=== PATIENT | male | born 1940 | race American Indian/Alaskan Native ===

== ENCOUNTER 2017-01-08 11:58 | Inpatient (IN) | payer MEDICARE ==
[2017-01-07 16:11] LABS: Basophils % (Auto) 1.1 % (0.0-1.8); Eosinophils % (Auto) 4.1 % (0.0-4.3); Hematocrit 40.9 % (35.5-45.6); Hemoglobin 13.4 gm/dl (11.8-15.2); Mean Corpuscular HGB Conc 33 % (32-34); Mean Corpuscular Hemoglobin 27 pg (28-32); Mean Corpuscular Volume 82 fl (84-94); Platelet Count 271 K/mm3 (140-440); Red Blood Count 4.98 M/mm3 (3.65-5.03); Red Cell Distribution Width 14.4 % (13.2-15.2); White Blood Count 7.6 K/mm3 (4.5-11.0)
--- NOTE | 2017-01-07 16:18 | Anesthesia Consultation ---
Anesthesia Consult and Med Hx Date of service: 01/08/17 - Airway Anesthetic Teeth Evaluation: Edentulous ROM Head & Neck: Adequate Mental/Hyoid Distance: Adequate Mallampati Class: Class II Intubation Access Assessment: Probably Good - Pre-Operative Health Status ASA Pre-Surgery Classification: ASA3 Proposed Anesthetic Plan: General, MAC - Pulmonary Hx Smoking: Yes (STOPPED X 1 YR-1 PACK PER WEEK) COPD: Yes (NO MEDS) Hx Sleep Apnea: No (LARISA PRE SCREEN HIGH RISK) - Cardiovascular System Hx Hypertension: Yes (X 1 YR) - Central Nervous System Hx Back Pain: Yes - Other Systems Hx Cancer: No
[2017-01-07 16:23] LABS: INR 1.04 (0.87-1.13)
[2017-01-07 16:24] LABS: Alanine Aminotransferase 33 units/L (7-56); Albumin 3.9 g/dL (3.9-5); Albumin/Globulin Ratio 1.1 %; Alkaline Phosphatase 97 units/L (35-129); Anion Gap 17 mmol/L; BUN/Creatinine Ratio 16.66; Blood Urea Nitrogen 15 mg/dL (9-20); Carbon Dioxide 25 mmol/L (22-30); Chloride 99.6 mmol/L (98-107); Glucose 103 mg/dL (75-100); Partial Thromboplastin Time 35.4 Sec. (24.2-36.6); Potassium 4.3 mmol/L (3.6-5.0); Sodium 137 mmol/L (137-145); Total Protein 7.4 g/dL (6.3-8.2)
[~2017-01-08 11:58] MED LIST: ANCEF/STERILE WATER 2 GM/20 ML IV NR; GARAMYCIN/NS 80 MG/100 ML 100 ML IV SCH; PEPCID PO NR; VERSED IV NR
[2017-01-08] MEDS: LACTATED RINGERS 1,000 ML IV SCH ×2 (12:45→17:45)
[2017-01-08] MEDS ORDERED: XYLOCAINE MPF 2% ONE (13:10)
[2017-01-08] MEDS ORDERED: DIPRIVAN 10 MG/ML IV ONE (13:10)
[2017-01-08] MEDS ORDERED: VERSED ONE (13:16)
[2017-01-08] MEDS ORDERED: PEPCID PO NR (13:30)
[2017-01-08] MEDS ORDERED: VERSED IV NR (13:30)
[2017-01-08] MEDS ORDERED: SUBLIMAZE ONE (13:41)
[2017-01-08] MEDS ORDERED: DECADRON ONE (13:44)
[2017-01-08] MEDS ORDERED: SORBITOL-MANNITOL IRRIG IR ONE (14:00)
[2017-01-08] MEDS ORDERED: NEO SYNEPHRINE/NS Syringe(OR USE) IV ONE (14:00)
[2017-01-08] MEDS ORDERED: WATER FOR IRRIG STERILE IR ONE (14:00)
[2017-01-08] MEDS ORDERED: ZOFRAN ONE (14:29)
[2017-01-08] MEDS ORDERED: LACTATED RINGERS 1,000 ML ONE (14:38)
[2017-01-08] MEDS ORDERED: MORPHINE IV PRN (14:45)
[2017-01-08] MEDS ORDERED: AMBIEN PO PRN (14:45)
[2017-01-08] MEDS ORDERED: ZOFRAN IV PRN (14:45)
[2017-01-08] MEDS ORDERED: NARCAN 0.4 MG/1 ML IV PRN (14:45)
[2017-01-08] MEDS ORDERED: NORCO 5/325 PO PRN (14:45)
[2017-01-08] MEDS ORDERED: LACTATED RINGERS 1,000 ML IV SCH (15:00)
--- NOTE | 2017-01-08 15:20 | Post Operative Note ---
Pre-op diagnosis: BPH and elevated PSA Post-op diagnosis: same Procedure: Cystoscopy and cystogram Transrectal ultrasound 110 mL Prostate biopsy Transurethral resection of the prostate Indications This patient is a 76-year-old gentleman seen in the office for elevated PSA of 9.8 also developed urinary retention requiring cystoscopy and Ortega catheter placement He presents now for surgical intervention risks benefits complications were explained Procedure Patient was taken to the operative suite placed in a supine position after adequate general anesthesia. Patient was prepped and draped in a sterile fashion placement dorsolithotomy position. Hoang cystourethroscopy was performed with a 22 [place] Storz cystoscope. Urethra was normal prostate revealed significant trilobar prostatic obstruction. Bladder no tumors or stones were noted ureteral orifices could not be appreciated due to significant trabeculation. Cystogram was performed no extravasation. Using a 27 [place] resectoscope and loop with the clinic cutting and coag on 160 and 60, transurethral resection of the prostate was performed in a systematic fashion. The median lobe of the prostate and lateral lobes were resected systematically. Each chips were evacuated out with the clickTRUE evacuator. Adequate hemostasis was achieved Prior to the TURP, transrectal ultrasound and biopsy was performed. The real time measurements of the prostate revealed 110 mL. No prosthetic lesions could be appreciated. Using the transrectal biopsy gun, 12 core biopsy was performed , 4 cores at the apex mid and base of the prostate. Patient tolerated the procedure well. 22 [place] 3-way catheter to Matthews drip was connected rectal exam was benign. Patient was taken to the recovery room in stable condition Anesthesia: AKANKSHAA Surgeon: YOSELYN EARLY Estimated blood loss: 50-100ml Pathology: list (prostate chips, prostate cores) Condition: stable Disposition: PACU
--- NOTE | 2017-01-08 15:22 | Short Stay Summary ---
Short Stay Documentation Date of service: 01/08/17 - History H&P: obtained from office - Allergies and Medications Current Medications: Allergies No Known Allergies Allergy (Verified 01/06/17 15:37) Home Medications Medication Instructions Recorded Confirmed Last Taken Type Cyanocobalamin (Vitamin B-12) 2,500 mcg PO DAILY 01/06/17 01/06/17 01/07/17 History [Vitamin B12] Multivits,Ca,Min/Iron/FA/Lycop 1 each PO DAILY 01/06/17 01/06/17 01/07/17 History [Centrum Men's Tablet] Tamsulosin [Flomax] 0.4 mg PO QDAY 01/06/17 01/06/17 01/07/17 History amLODIPine [Norvasc] 5 mg PO DAILY 01/06/17 01/08/17 01/08/17 07:30 History Active Medications Acetaminophen/Hydrocodone Bitart ([place] 5/325) 2 each PO Q4H PRN PRN Reason: Pain, Moderate (4-6) Amlodipine Besylate (Norvasc) 5 mg PO DAILY SHERI Cefazolin Sodium (Ancef/Sterile Water 2 Gm/20 Ml) 2 gm IV PREOP NR Stop: 01/08/17 23:59 Cyanocobalamin (Vitamin B-12) 2,500 mcg PO DAILY SHERI Famotidine (Pepcid) 20 mg PO PREOP NR Stop: 01/08/17 19:00 Last Admin: 01/08/17 13:13 Dose: 20 mg Gentamicin Sulfate/Sodium Chloride (Garamycin/Ns 80 Mg/100 Ml) 100 mls @ 200 mls/hr IV PREOP SHERI Lactated Ringer's (Lactated Ringers) 1,000 mls @ 100 mls/hr IV DIRECT SHERI Last Admin: 01/08/17 12:45 Dose: 100 mls/hr Cefazolin Sodium (Ancef/Ns 1 Gm/50 Ml) 1 gm in 50 mls @ 100 mls/hr IV Q8H SHERI PRN Reason: Protocol Stop: 01/09/17 05:59 Lactated Ringer's (Lactated Ringers) 1,000 mls @ 100 mls/hr IV DIRECT SHERI Midazolam HCl (Versed) 2 mg IV PREOP NR Stop: 01/08/17 18:00 Last Admin: 01/08/17 13:13 Dose: 2 mg Morphine Sulfate (Morphine) 4 mg IV Q4H PRN PRN Reason: Pain , Severe (7-10) Multivitamins (Theragran Tab) 1 each PO DAILY SHREI Naloxone HCl (Narcan 0.4 Mg/1 Ml) 0.1 mg IV Q2MIN PRN PRN Reason: Res Rate </= 8 or 02 SAT < 92% Ondansetron HCl (Zofran) 4 mg IV Q8H PRN PRN Reason: Nausea And Vomiting Sodium Chloride (Nacl 0.9%) 2,000 ml IR DIRECT SHERI Zolpidem Tartrate (Ambien) 5 mg PO QHS PRN PRN Reason: Sleep - Brief post op/procedure progress note Date of procedure: 01/08/17 Pre-op diagnosis: bph, elevated psa Post-op diagnosis: same Procedure: cysto, cystogram, turp, pus bx Surgeon: YOSELYN EARLY Estimated blood loss: 50-100ml Pathology: list (prostate chips & cores) Condition: stable - Hospital course Hospital course: bianka & trang on chart k+ 5.1 this am home with [facility] - Disposition Condition at discharge: Stable Short Stay Discharge Plan Follow up with: CARLY TORRES MD [Primary Care Provider] - 7 Days
[2017-01-08] MEDS: DILAUDID IV PRN ×2 (15:30→15:44)
--- NOTE | 2017-01-08 15:39 | Fluoroscopy Report ---
Static cystogram. History: Elevated PSA. Findings: The billet shearer film is unremarkable. A single image of the contrast-filled urinary bladder demonstrates normal size and contour with no evidence of vesicoureteral reflux. Impression: Negative study.
[2017-01-08] MEDS ORDERED: NORMODYNE IV PRN (15:53)
[2017-01-08 17:37] LABS: Basophils % (Auto) 0.4 % (0.0-1.8); Eosinophils % (Auto) 0.3 % (0.0-4.3); Hematocrit 38.3 % (35.5-45.6); Hemoglobin 12.4 gm/dl (11.8-15.2); Mean Corpuscular HGB Conc 32 % (32-34); Mean Corpuscular Hemoglobin 27 pg (28-32); Mean Corpuscular Volume 83 fl (84-94); Platelet Count 266 K/mm3 (140-440); Red Blood Count 4.61 M/mm3 (3.65-5.03); Red Cell Distribution Width 14.1 % (13.2-15.2); White Blood Count 8.9 K/mm3 (4.5-11.0)
[2017-01-08 17:54] LABS: Anion Gap 18 mmol/L; Blood Urea Nitrogen 12 mg/dL (9-20); Calcium 8.9 mg/dL (8.4-10.2); Carbon Dioxide 27 mmol/L (22-30); Chloride 102.8 mmol/L (98-107); Glucose 133 mg/dL (75-100); Potassium 5.5 mmol/L (3.6-5.0); Sodium 142 mmol/L (137-145)
--- NOTE | 2017-01-08 17:58 | Post Anesthesia Evaluation ---
- Post Anesthesia Evaluation Patient Participated: Yes Airway Patent: Yes Stable Respiratory Function: Yes Nausea/Vomiting: No Temp > 96.8F: Yes Pain Manageable: Yes Adequeate Hydration: Yes Anesthesia Complications: No
[2017-01-08] MEDS ORDERED: NACL 0.9% 1,000 ML IR ONE (18:04)
[2017-01-08] MEDS: ANCEF/NS 1 GM/50 ML 1 GM/50 ML BAG IV SCH (22:01)
[2017-01-08] MEDS: NACL 0.9% IR SCH ×2 (22:06→22:07)
[2017-01-08] MEDS ORDERED: KIONEX PO ONE (22:24)
[2017-01-08] MEDS ORDERED: KIONEX PR ONE (22:30)
--- NOTE | 2017-01-08 23:50 | Consultation ---
History of Present Illness - Reason for Consult Consult date: 01/08/17 Medical management Requesting physician: YOSELYN EARLY - History of Present Illness S/p Turp --Post op doing well.On Matthews drip. Past History Past Medical History: hypertension, other Past Surgical History: TURP Social history: no significant social history Family history: hypertension Medications and Allergies Allergies Allergy/AdvReac Type Severity Reaction Status Date / Time No Known Allergies Allergy Verified 01/06/17 15:37 Home Medications Medication Instructions Recorded Confirmed Last Taken Type Cyanocobalamin (Vitamin B-12) 2,500 mcg PO DAILY 01/06/17 01/06/17 01/07/17 History [Vitamin B12] Multivits,Ca,Min/Iron/FA/Lycop 1 each PO DAILY 01/06/17 01/06/17 01/07/17 History [Centrum Men's Tablet] Tamsulosin [Flomax] 0.4 mg PO QDAY 01/06/17 01/06/17 01/07/17 History amLODIPine [Norvasc] 5 mg PO DAILY 01/06/17 01/08/17 01/08/17 07:30 History Active Meds: Active Medications Acetaminophen/Hydrocodone Bitart ([place] 5/325) 2 each PO Q4H PRN PRN Reason: Pain, Moderate (4-6) Amlodipine Besylate (Norvasc) 5 mg PO DAILY SHERI Cefazolin Sodium (Ancef/Sterile Water 2 Gm/20 Ml) 2 gm IV PREOP NR Stop: 01/08/17 23:59 Cyanocobalamin (Vitamin B-12) 2,500 mcg PO DAILY SHERI Hydromorphone HCl (Dilaudid) 0.5 mg IV Q10MIN PRN PRN Reason: Pain , Severe (7-10) Stop: 01/08/17 23:59 Last Admin: 01/08/17 15:44 Dose: 0.5 mg Gentamicin Sulfate/Sodium Chloride (Garamycin/Ns 80 Mg/100 Ml) 100 mls @ 200 mls/hr IV PREOP SHERI Lactated Ringer's (Lactated Ringers) 1,000 mls @ 100 mls/hr IV DIRECT SHERI Last Admin: 01/08/17 17:45 Dose: 100 mls/hr Cefazolin Sodium (Ancef/Ns 1 Gm/50 Ml) 1 gm in 50 mls @ 100 mls/hr IV Q8H SHERI PRN Reason: Protocol Stop: 01/09/17 05:59 Last Admin: 01/08/17 22:01 Dose: 100 mls/hr Lactated Ringer's (Lactated Ringers) 1,000 mls @ 100 mls/hr IV DIRECT SHERI Labetalol HCl (Normodyne) 10 mg IV ONCE PRN PRN Reason: Hypertension SYS>160 Stop: 01/10/17 15:54 Last Admin: 01/08/17 16:05 Dose: 10 mg Morphine Sulfate (Morphine) 4 mg IV Q4H PRN PRN Reason: Pain , Severe (7-10) Multivitamins (Theragran Tab) 1 each PO DAILY SHERI Naloxone HCl (Narcan 0.4 Mg/1 Ml) 0.1 mg IV Q2MIN PRN PRN Reason: Res Rate </= 8 or 02 SAT < 92% Ondansetron HCl (Zofran) 4 mg IV Q8H PRN PRN Reason: Nausea And Vomiting Sodium Chloride (Nacl 0.9%) 2,000 ml IR DIRECT SHERI Last Admin: 01/08/17 22:07 Dose: 2,000 ml Zolpidem Tartrate (Ambien) 5 mg PO QHS PRN PRN Reason: Sleep Review of Systems All systems: negative Exam - Constitutional Vitals: Temp Pulse Resp BP Pulse Ox 97.4 F L 80 17 137/77 100 01/08/17 22:02 01/08/17 22:02 01/08/17 22:02 01/08/17 22:02 01/08/17 22:02 General appearance: Present: no acute distress, well-nourished - EENT Eyes: Present: PERRL ENT: hearing intact, clear oral mucosa - Neck Neck: Present: supple, normal ROM - Respiratory Respiratory effort: normal Respiratory: bilateral: CTA - Cardiovascular Heart Sounds: Present: S1 & S2. Absent: rub, click - Extremities Extremities: pulses symmetrical, No edema Peripheral Pulses: within normal limits - Abdominal General gastrointestinal: Present: soft, non-tender, non-distended, normal bowel sounds Male genitourinary: Present: normal - Integumentary Integumentary: Present: clear, warm, dry - Musculoskeletal Musculoskeletal: gait normal, strength equal bilaterally - Psychiatric Psychiatric: appropriate mood/affect, intact judgment & insight - Neurologic Neurologic: CNII-XII intact, moves all extremities Results - Labs CBC & Chem 7: 01/09/17 05:19 01/09/17 05:19 Labs: Abnormal lab results 01/08/17 01/08/17 Range/Units 16:56 16:56 MCV 83 L (84-94) fl MCH 27 L (28-32) pg Lymph % (Auto) 8.7 L (13.4-35.0) % Lymph # 0.8 L (1.2-5.4) K/mm3 Seg Neutrophils % 88.6 H (40.0-70.0) % Seg Neutrophils # 7.9 H (1.8-7.7) K/mm3 Potassium 5.5 H D (3.6-5.0) mmol/L Glucose 133 H (75-100) mg/dL Assessment and Plan - Patient Problems (1) HTN (hypertension) Current Visit: Yes Status: Acute Qualifiers: Hypertension type: essential hypertension Qualified Code(s): I10 - Essential (primary) hypertension Plan to address problem: On Amlodipine 5mg po qd (2) BPH (benign prostatic hyperplasia) Current Visit: Yes Status: Chronic Qualifiers: Lower urinary tract symptom presence: L Lower urinary tract symptom detail : unspecified Qualified Code(s): N40.1 - Benign prostatic hyperplasia with lower urinary tract symptoms Plan to address problem: Had TURP.May not need
[2017-01-09] MEDS: LACTATED RINGERS 1,000 ML IV SCH (03:32)
[2017-01-09] MEDS: NACL 0.9% IR SCH ×4 (04:00→06:34)
[2017-01-09 06:27] LABS: Basophils % (Auto) 0.4 % (0.0-1.8); Eosinophils % (Auto) 0.1 % (0.0-4.3); Hemoglobin 10.8 gm/dl (11.8-15.2); Mean Corpuscular HGB Conc 33 % (32-34); Mean Corpuscular Hemoglobin 27 pg (28-32); Mean Corpuscular Volume 82 fl (84-94); Platelet Count 268 K/mm3 (140-440); Red Cell Distribution Width 13.9 % (13.2-15.2); White Blood Count 9.4 K/mm3 (4.5-11.0)
[2017-01-09] MEDS: ANCEF/NS 1 GM/50 ML 1 GM/50 ML BAG IV SCH (06:35)
[2017-01-09 06:42] LABS: Anion Gap 18 mmol/L; BUN/Creatinine Ratio 13.75; Blood Urea Nitrogen 11 mg/dL (9-20); Calcium 8.4 mg/dL (8.4-10.2); Carbon Dioxide 25 mmol/L (22-30); Chloride 101.3 mmol/L (98-107); Glucose 107 mg/dL (75-100); Potassium 5.1 mmol/L (3.6-5.0); Sodium 139 mmol/L (137-145)
--- NOTE | 2017-01-09 07:58 | Admit Criteria Form ---
Admission Criteria Documentation: AMBULATORY SURGERY EXCEPTION CRITERIA Ambulatory Surgery Exception Criteria ( Place 'X' for any and all applicable criteria): Surgery or procedure performed on ambulatory basis may require inpatient stay for[A] ANY ONE of the following(1)(2)(3)(4)(5)(6)(7)(8)(9): [] I. A preoperative situation, condition, or finding that warrants inpatient stay as indicated by ANY ONE of the following: [] a) Inpatient care needed because of severity of a disease or condition rather than the surgery (eg, severe cardiac or respiratory disease, severe infection) (15) (16 ) (17) (18) [] b) Emergent procedure (eg, angioplasty for acute ischemia)(19) [] c) Complex surgical approach or situation as indicated by ANY ONE of the following(3): [] i) Open approach needed instead of usual endoscopic, transcatheter, or other less invasive procedure [] ii) Difficult approach because of previous operation [] iii) Airway monitoring required after open neck procedures(20)(21) [] iv) Large mass requiring unusually extensive dissection [] v) Additional complicating feature requiring inpatient care (eg, drain management)(22(23): [] d) Major surgery in a pt with high anesthetic risk as indicated by ANY ONE of the following (2)(3)(5)(7)(8): [] i) ASA risk class III or higher (severe systemic disease impairing function) [D] [] ii) Advanced age (eg, older than 85 years)(14)(24) [] iii) Symptomatic heart failure(25) [] iv) Symptomatic asthma or COPD(8)(21) [] v) Morbid obesity with hemodynamic or respiratory problems(20)( 21)(26)(27) [] vi) Obstructive sleep apnea(20)(21) [] vii) Former premature infants who are younger than 60 weeks [] viii) High risk for severe postoperative abnormalities (eg, severe postoperative hypocalcemia after parathyroidectomy for severe hyperparathyroidism)(27)( 28) [] ix) Unstable angina(25) [] e) Drug-related risk requiring inpatient stay as indicated by ANY ONE of the following(5)(10)(14)(32)(33) [] i) Procedure requires discontinuing drugs or other therapy (eg , antiarrhythmic medication, antiseizure medication), which necessitates inpatient observation or treatment.(18)(31) [] ii) Major surgery and high risk drug use as indicated by ANY ONE of the following: [] 1) Active abuse of cocaine or similar drug [] 2) Monoamine oxidase inhibitor use [] 3) Other drug identified as posing risk [] f) Inadequate outpatient care situation as indicated by ANY ONE of the following(5)(10)(14)(32)(33) [] i) Patient lives remote from medical facility and procedure has urgent complication potential, and temporary nearby residence cannot be arranged [] ii) Patient will have postprocedure incapacitation and inadequate assistance at home, or alternative level of care cannot be arranged. [] iii) Patient will have long general anesthesia or procedure side effect resolution time, and competent person to stay with patient on first postoperative night at home or alternative level of care cannot be arranged. []iv) Other inadequate outpatient situation that cannot be handled by other means [X] II. A perioperative event, condition, or finding that warrants inpatient stay as indicated by ANY ONE of the following (1)(2)(3): [X] a) Inadequate physiologic recovery: cardiovascular, respiratory, or hemodynamic status not normal or near preoperative baseline(18) [] b) Hemodynamic instability [] c) Patient not alert with near normal or baseline mental status [] d) Temperature not normal or as expected and not appropriate for outpatient treatment of condition [] e) Ambulatory or appropriate activity level status not yet achieved post procedure [E](34)(35)(36) [] f) Operative site not appropriate (eg, unexpected or excessive drainage or bleeding) [] g) Postoperative effects not resolved or adequately managed (eg, significant pain or vomiting not appropriate for outpatient or next level of care)(10)(12) [] h) Complicating features requiring inpatient care as indicated by ANY ONE of the following(37): [] i) Severe complications of procedure (eg, bowel injury, airway compromise, vascular injury,severe hemorrhage) [] ii) Extensive (eg, dissection far beyond usual scope of procedure ) or prolonged (eg, 120 minutes beyond usual) surgery needed requiring inpatient postoperative care [] iii) Conversion to an open or complex procedure that requires inpatient care (eg, open vs laparoscopic cholecystectomy, abdominal vs vaginal hysterectomy)(38) [] iv) Comorbid condition or test result identified during or post procedure that requires inpatient care (7) [] v) Malignant hyperthermia(30) [] vi) Other complicating feature requiring inpatient care(22)(23) Inpatient stay may be needed until ALL of the following are present (1)(2)(3)(4) (5)(6)(10)(14)(33)(40): []a) Physiologic recovery: cardiovascular, respiratory, and hemodynamic status normal or near preoperative baseline []b) Hemodynamic stability []c) Patient alert, with near normal or baseline mental status []d) Temperature appropriate: patient afebrile or temperature appropriate for outpt treatment of condition []e) Activity level appropriate: ambulatory or appropriate activity level post procedure []f) Operative site appropriate as indicated by ALL of the following: []i) Site dry or with expected drainage []ii) Any blood noted is as expected for procedure. []g) Postoperative effects resolved or managed as indicated by ALL of the following: []i) Pain management appropriate for outpatient (or next level of) care(10) []ii) Minimal nausea and vomiting: if present, successfully treated with oral medication(12) []iii) Headache, dizziness, or drowsiness (if present) are mild. []h) Voiding status acceptable as indicated by ANY ONE of the following: []i) Voiding spontaneously []ii) No voiding but instructions given for follow-up in 6 to 8 hours []iii) Urinary catheter in place, and instructions given for follow-up []i) Complicating features requiring inpatient care manageable at a lower level of care(37) []j) Comorbid conditions manageable at a lower level of care(37) The original [employer] content created by [employer] has been revised. The portions of the content which have been revised are identified through the use of italic text or in bold, and [employer] has neither reviewed nor approved the modified material. All other unmodified content is copyright [employer]. Please see references footnoted in the original [employer] edition 2016 Admission Criteria Met: Yes
--- NOTE | 2017-01-09 08:55 | Ultrasound Report ---
ULTRASOUND-GUIDED INTRAOPERATIVE History: Prostate biopsy. Findings: Endorectal ultrasound guidance was provided by radiology during prostate biopsy by urology. Prostate volume measures 124 cc. Biopsy was performed by Dr. Leal. Impression: Successful prostate biopsy under ultrasound guidance.
[2017-01-09] MEDS ORDERED: NON-FORMULARY (Cyanocobalamin (Vitamin B-12) [Vitamin B12] 2,500 MCG) PO SCH (10:00)
[2017-01-09] MEDS ORDERED: IRON PO SCH (10:00)
[2017-01-09] MEDS ORDERED: VITAMIN B-12 PO SCH (10:00)
[2017-01-09] MEDS ORDERED: NORVASC PO SCH (10:00)
[2017-01-09] MEDS ORDERED: THERAGRAN Tab PO SCH (10:00)
[2017-01-09] MEDS ORDERED: MULTIVITS CA MIN PO SCH (10:00)
[2017-01-09] MEDS ORDERED: LYCOP PO SCH (10:00)
[2017-01-09] MEDS ORDERED: [UNRECOGNIZED DRUG - OTHER] PO SCH (10:00)
[2017-01-09 17:03] VITALS: BP 118/71
== END 2017-01-09 16:58 | disposition home or self-care (01) | DRG 714 ==
LOC: OR 11:58 → 2B-SURG 14:45
PROVIDERS: ADMIT Urology; ATTEND Urology
PROC: 0VB08ZZ Excision of Prostate, Via Natural or Artificial Opening Endoscopic (ICD-10-PCS; principal; 2017-01-08)
DX: N40.1 Benign prostatic hyperplasia with lower urinary tract symptoms (principal); I10 Essential (primary) hypertension; J44.9 Chronic obstructive pulmonary disease, unspecified; Z87.891 Personal history of nicotine dependence; Z82.49 Family history of ischemic heart disease and other diseases of the circulatory system; R33.8 Other retention of urine; N41.9 Inflammatory disease of prostate, unspecified
CPT/HCPCS: 36415; 74430; 76998; 80048; 80053; 85025; 85610; 85730; 86850; 86900; 86901; 88305; 88307; 88342; 88344; A4217; C1758; J0690; J1100; J1170; J1580; J2250; J2270; J2370; J2405; J2704; J3010; J7120; Q9967

== ENCOUNTER 2017-01-22 10:41 | Outpatient (CLI) | payer MEDICARE ==
--- NOTE | 2017-01-22 14:08 | Nuclear Medicine Report ---
BONE SCAN: After injection of isotope, gamma camera imaging of the bony system was done. There is a normal uptake of isotope throughout the bony structures without areas of significantly increased or decreased uptake. Normal uptake in the urinary system is seen. IMPRESSION: Negative bone scan.
--- NOTE | 2017-01-22 14:17 | Cat Scan Report ---
CT OF THE ABDOMEN AND PELVIS WITHOUT CONTRAST HISTORY: Malignant neoplasm of prostate. TECHNIQUE: Helical CT without contrast. Sagittal and coronal reformatted images. FINDINGS: Correlation is made with the bone scan performed the same day. No suspicious blastic bony lesion is identified. Spondylosis is noted. The visualized lung bases are clear. Normal heart size. The liver, biliary system, pancreas, spleen, kidneys and adrenal glands are unremarkable. The bowel loops are normal caliber and wall thickness. Normal appendix. There is marked enlargement of the prostate gland measuring up to 7.2 cm in diameter. The bladder is partially empty and unremarkable. No abdominal adenopathy, ascites or inflammatory changes are identified. IMPRESSION: Marked enlargement of the prostate gland. No evidence for metastatic prostate cancer on noncontrast CT.
== END 2017-01-22 10:42 | disposition home or self-care (01) ==
LOC: NM 10:41
PROVIDERS: ATTEND Urology
DX: C61 Malignant neoplasm of prostate (principal); C26.0 Malignant neoplasm of intestinal tract, part unspecified; I10 Essential (primary) hypertension; J44.9 Chronic obstructive pulmonary disease, unspecified; Z87.891 Personal history of nicotine dependence
CPT/HCPCS: 74176; 78306; A9503